=== PATIENT | male | born 1960 | race Caucasian/White ===

== ENCOUNTER 2019-08-02 13:18 | Emergency (ER) | payer BC ==
[~2019-08-02] VITALS: Ht 180.3 cm; Wt 95.2 kg
[~2019-08-02 13:18] MED LIST: BECLNI16.8; FEXPSEER; HYDMOR2 PO; IBUP800 PO; LISI20; OXYACE5T; OXYACE5T PO; OXYACE7.5T PO; RXHYDMOR2 PO; ZOLP5
[2019-08-02] MEDS ORDERED: QVAR REDIHALE10.6 G1 INH (13:47)
[2019-08-02] MEDS ORDERED: MONT10T (13:47)
[2019-08-02] MEDS ORDERED: Percocet 5-3251 EACH PO (16:04)
[2019-08-02] MEDS ORDERED: TRAZ50 PO (16:17)
== END 2019-08-02 16:16 | disposition home or self-care (01) ==
LOC: ER 13:18
DX: S43.015A Anterior dislocation of left humerus, initial encounter (principal); M25.521 Pain in right elbow; Z79.899 Other long term (current) drug therapy; W22.8XXA Striking against or struck by other objects, initial encounter
CPT/HCPCS: 23650; 73020; 73030; 73080; 96374-59; 96375-59; 96376-59; 99152; 99283-25; J1170; J2405; J2704; J7030

== ENCOUNTER 2019-08-20 11:05 | Day surgery (SDC) | payer BC ==
[~2019-08-20] VITALS: Ht 180.3 cm; Wt 95.3 kg
[~2019-08-20 11:05] MED LIST changes: +AFRIN SINUS; +AMLO5 PO; +Allegra-D 12 H1 EACH PO; -FEXPSEER; -LISI20; +LISI20 PO; +MONT10T; +OXYC10TA19 PO; +Percocet 5-3251 EACH PO; +QVAR REDIHALE10.6 G1 INH; +THERA1 EACH PO; +TRAZ50 PO; -ZOLP5; +ZOLP5 PO
--- NOTE | 2019-08-20 11:44 | NUR ---
IN[facility] ADMISSION TO UNIT STARTEDAmbulatory in Day Surgery History, Chart, Medications and Allergies reviewed before start of procedure. Patient States Post-Procedure ride home has been arranged.
--- NOTE | 2019-08-20 15:42 | NUR ---
RECIEVED PATIENT FROM PACU JUICE GIVEN TO PATIENT CRACKERS AND PUDDING. PATIENT EAGER TO LEAVE
--- NOTE | 2019-08-20 15:54 | NUR ---
Discharge instructions reviewed with patient. Patient verbalizes understanding. Copy given to patient to take home. Patient States Post-Procedure ride home has been arranged. Discharged via wheelchair to private car for ride home.
== END 2019-08-20 23:00 | disposition home or self-care (01) ==
LOC: ORSCMMR 11:05
PROVIDERS: Orthopaedic Surgery
PROC: 0LM30ZZ Reattachment of Right Upper Arm Tendon, Open Approach (ICD-10-PCS; principal; 2019-08-20 12:30)
DX: S46.301A Unspecified injury of muscle, fascia and tendon of triceps, right arm, initial encounter (principal); M24.621 Ankylosis, right elbow; I10 Essential (primary) hypertension; J44.9 Chronic obstructive pulmonary disease, unspecified; Z79.899 Other long term (current) drug therapy
CPT/HCPCS: C1713; J0690; J1100; J1170; J1885; J2250; J2405; J2704; J3010; J7120

== ENCOUNTER 2019-11-02 13:25 | Emergency (ER) | payer BC ==
[~2019-11-02] VITALS: Ht 175.3 cm; Wt 90.7 kg
[2019-11-02] MEDS ORDERED: HYDR1TAB94 PO (15:25)
[2019-11-02] MEDS ORDERED: IBU800 MG PO (15:25)
[2019-11-02] MEDS ORDERED: CEPHALEXIN500 M1 PO (15:25)
[2019-11-02] MEDS ORDERED: Percocet 5-3251 EACH PO (15:59)
== END 2019-11-02 16:02 | disposition other institution (70) ==
LOC: ER 13:25
DX: S01.81XA Laceration without foreign body of other part of head, initial encounter (principal); S01.112A Laceration without foreign body of left eyelid and periocular area, initial encounter; Z79.899 Other long term (current) drug therapy; W01.10XA Fall on same level from slipping, tripping and stumbling with subsequent striking against unspecified object, initial encounter
CPT/HCPCS: 12015; 70450; 72125; 90471; 90714; 96374-59; 96375-59; 99283-25; J0690; J1200; J2270; L0160

== ENCOUNTER 2019-11-03 12:42 | Emergency (ER) | payer BC ==
[~2019-11-03] VITALS: Ht 180.3 cm; Wt 99.8 kg
[~2019-11-03 12:42] MED LIST changes: +CEPHALEXIN500 M1 PO; +HYDR1TAB94 PO; +IBU800 MG PO
== END 2019-11-03 14:00 | disposition home or self-care (01) ==
LOC: ER 12:42
DX: S81.811A Laceration without foreign body, right lower leg, initial encounter (principal); I10 Essential (primary) hypertension; J45.909 Unspecified asthma, uncomplicated; Z79.899 Other long term (current) drug therapy; W22.8XXA Striking against or struck by other objects, initial encounter
CPT/HCPCS: 12002; 99282-25

== ENCOUNTER 2019-11-09 09:41 | Emergency (ER) | payer BC ==
[~2019-11-09] VITALS: Ht 175.3 cm; Wt 83.9 kg
[2019-11-09] MEDS ORDERED: IBUP800 PO (09:59)
[2019-11-09] MEDS ORDERED: Mupirocin22 GM TP (09:59)
[2019-11-09] MEDS ORDERED: Norco 5-325 Ta1 EACH PO (09:59)
[2019-11-09] MEDS ORDERED: Percocet 5-3251 EACH PO (10:05)
== END 2019-11-09 10:06 | disposition home or self-care (01) ==
LOC: ER 09:41
DX: T81.41XA Infection following a procedure, superficial incisional surgical site, initial encounter (principal); S01.81XD Laceration without foreign body of other part of head, subsequent encounter; Z79.899 Other long term (current) drug therapy
CPT/HCPCS: 99282

== ENCOUNTER 2021-03-13 20:21 | Emergency (ER) | payer BC ==
[~2021-03-13] VITALS: Ht 182.9 cm; Wt 95.2 kg
[~2021-03-13 20:21] MED LIST changes: +Mupirocin22 GM TP; +Norco 5-325 Ta1 EACH PO
[2021-03-13 20:50] LABS: Hematocrit 52.5 % (37.0-53.0); Hemoglobin 18.4 g/dL (13.5-17.5); Mean Corpuscular HGB 31.3 pg (26.0-34.0); Mean Corpuscular Volume 89 fL (80-100); Mean Platelet Volume 8.9 fL (9.1-12.4); Platelet Count 206 K/mm3 (150-400); RDW Coefficient Variation 12.9 % (11.7-14.2); RDW Standard Deviation 42.4 fL (35.1-46.3); Red Blood Cell Count 5.87 M/mm3 (4.30-5.90); White Blood Cell Count 9.87 K/mm3 (4.00-11.30)
[2021-03-13 21:08] LABS: Alanine Aminotransfer (ALT/SGP 50 U/L (12-78); Albumin, Blood 3.6 g/dL (3.4-5.0); Albumin/Globulin Ratio 1.2 (0.8-1.8); Alk Phos 68 U/L (50-136); Anion Gap 7 mmol/L (6-16); Aspartate Aminotrans (AST/SGOT 28 U/L (12-37); Bilirubin, Total 0.5 mg/dL (0.1-1.0); Blood Urea Nitrogen 14 mg/dL (8-24); CO2, Blood 26 mmol/L (21-32); Calcium, Blood 8.4 mg/dL (8.5-10.1); Chloride, Blood 106 mmol/L (98-108); Creatinine, Blood 0.88 mg/dL (0.60-1.20); Glomerular Filtration Rate >60 (60-); Glucose, Blood 141 mg/dL (70-99); Potassium, Blood 4.1 mmol/L (3.5-5.5); Sodium, Blood 139 mmol/L (136-145); Total Protein, Blood 6.6 g/dL (6.4-8.2)
[2021-03-13 21:32] LABS: BASOPHILS PERCENT MAN 0 % (0-2); EOSINOPHILS ABSOLUTE MAN 0.09 K/mm3 (0.00-0.68); EOSINOPHILS PERCENT MAN 1 % (0-6); LYMPHOCYTES ABSOLUTE MAN 1.67 K/mm3 (0.84-5.20); LYMPHOCYTES PERCENT MAN 17 % (21-46); METAMYELOCYTE ABSOLUTE MAN 0.09 K/mm3 (0.00-0.00); METAMYELOCYTE PERCENT MAN 1 % (0-0); MONOCYTES ABSOLUTE MAN 0.59 K/mm3 (0.16-1.47); MONOCYTES PERCENT MAN 6 % (4-13); MYELOCYTE ABSOLUTE MAN 0.09 K/mm3 (0.00-0.00); MYELOCYTE PERCENT MAN 1 % (0-0); SEG NEUTROPHILS PERCENT MAN 74 % (41-73); TOTAL CELLS COUNTED 100
[2021-03-13 21:42] LABS: Magnesium, Blood 2.2 mg/dL (1.6-2.4); Troponin I <0.015 ng/mL (0.000-0.040)
[2021-03-13 21:47] LABS: Source, Urine Clean Catch
[2021-03-13 21:51] LABS: Bilirubin, Urine Neg (Neg); Blood, Urine Neg (Neg); Glucose Qualitative, Urine Neg (Neg); Ketones, Urine Neg (Neg); Leukocyte Esterase, Urine 1+ (Neg); Nitrite, Urine Neg (Neg); Protein, Urine Neg (Neg); Urobilinogen, Urine NORM (Normal)
[2021-03-13 22:00] LABS: Appearance, Urine Clear (Clear); Color, Urine Yellow (P-Yellow)
[2021-03-13 22:01] LABS: Bacteria Not Seen /hpf; Red Blood Cells, Urine Not Seen /hpf (0-2); Squamous Epithelial Cells Not Seen /hpf (Few); White Blood Cells, Urine Rare /hpf (0-5)
[2021-03-13 22:07] LABS: U Amphetamine Screen Not Detected; U Barbituate Screen DETECTED; U Benzodiazapine Screen Not Detected; U Buprenorphine Screen Not Detected; U Cannabinoids Screen Not Detected; U Cocaine Screen Not Detected; U Methadone Screen Not Detected; U Methamphetamine Screen Not Detected; U Opiates Screen Not Detected; U Oxycodone Screen DETECTED; U Phencyclidine Screen Not Detected; U Propoxyphene Screen Not Detected
== END 2021-03-13 22:44 | disposition home or self-care (01) ==
LOC: ER 20:21
PROVIDERS: Emergency Medicine
DX: R06.6 Hiccough (principal); F41.9 Anxiety disorder, unspecified; I10 Essential (primary) hypertension; J44.9 Chronic obstructive pulmonary disease, unspecified; Z79.899 Other long term (current) drug therapy
CPT/HCPCS: 80053; 81001; 83690; 83735; 84145; 84484; 85025; 93005; 93010; 99283-25; A9270